=== PATIENT | male | born 1960 | race Caucasian/White ===

== ENCOUNTER 2020-07-02 13:38 | Outpatient (CLI) | payer SELFPAY | END 2020-07-02 13:39 | disposition EMS.NT | LOC: EMS 13:38 | DX: R25.1 Tremor, unspecified (principal) ==

== ENCOUNTER 2020-07-02 21:35 | Outpatient (CLI) | payer BC | END 2020-07-02 21:36 | disposition critical access hospital (66) | LOC: EMS 21:35 | PROVIDERS: ATTEND Emergency Medicine | DX: R25.1 Tremor, unspecified (principal); R11.0 Nausea | CPT/HCPCS: A0425; A0427 ==

== ENCOUNTER 2020-07-02 21:59 | Emergency (ER) | payer BC ==
--- NOTE | 2020-07-02 22:07 | ED Physician Documentation ---
PD HPI NVD - Stated complaint Stated Complaint: SHAKINESS - History obtained from History obtained from: Patient, EMS - History of Present Illness Timing - onset: Today (early this morning, and has continued through the day. Had been tapering/stopping alcohol use and had not had any today, only 2 drinks yesterday. Denies vomiting.) Timing - duration: Days (1-2) Timing - details: Gradual onset, Still present Associated symptoms: Loss of appetite. No: Fever, Abdominal pain, Chest pain, Near syncope / syncope Contributing factors: Alcohol use (drinks regularly and was wanting to stop, so had less alcohol the past few days and then none today.). No: Sick contact, Recent antibiotics Similar symptoms before: Has not had sx before Recently seen: Not recently seen Review of Systems Constitutional: denies: Fever, Chills Nose: denies: Rhinorrhea / runny nose, Congestion Throat: denies: Sore throat Cardiac: denies: Chest pain / pressure Respiratory: denies: Cough GI: reports: Nausea, Diarrhea (mild loose stools). denies: Abdominal Pain, Vomiting, Constipation, Bloody / black stool Neurologic: reports: Generalized weakness. denies: Focal weakness, Numbness, Near syncope, Confused, Altered mental status, Headache Psychiatric: denies: Depressed, Suicidal, Anxiety PD PAST MEDICAL HISTORY - Past Medical History Cardiovascular: None Respiratory: None Neuro: None Endocrine/Autoimmune: None - Present Medications Home Medications: Ambulatory Orders Medication Instructions Recorded Confirmed Famotidine [Pepcid] 20 mg PO DAILY #20 tab 07/03/20 LORazepam [Ativan] 1 mg PO Q8H PRN #25 tab 07/03/20 Ondansetron Odt [Zofran] 4 mg TL Q6H PRN #10 tab 07/03/20 - Allergies Allergies/Adverse Reactions: Allergies Allergy/AdvReac Type Severity Reaction Status Date / Time No Known Drug Allergies Allergy Verified 07/02/20 22:06 - Living Situation Living Situation: reports: With spouse/s.o. Living Arrangement: reports: At home - Social History Does the pt drink ETOH?: Yes Does the pt have substance abuse?: No PD ED PE NORMAL - Vitals Vital signs reviewed: Yes - General General: Alert and oriented X 3, No acute distress (seems shaky mildly. ), Well developed/nourished - HEENT HEENT: Pharynx benign - Neck Neck: Supple, no meningeal sign, No adenopathy - Cardiac Cardiac: RRR (regular but tachycardic), No murmur - Respiratory Respiratory: Clear bilaterally - Abdomen Abdomen: Normal bowel sounds, Soft, Non tender, Non distended, No organomegaly - Derm Derm: Normal color, Warm and dry - Extremities Extremities: Normal ROM s pain, No edema, Other (mild general tremoring arms and legs. ) - Neuro Neuro: Alert and oriented X 3, No motor deficit, Normal speech Results - Vitals Vitals: Vital Signs - 24 hr 07/02/20 07/02/20 07/03/20 22:06 22:11 00:12 Temperature 37.6 C 37.6 C Heart Rate 125 H 125 H 99 Respiratory 18 18 14 Rate Blood Pressure 160/100 H 160/100 H 149/56 H O2 Saturation 95 95 100 Oxygen O2 Source Room air - Labs Labs: Laboratory Tests 07/02/20 07/02/20 07/02/20 22:30 22:50 22:50 WBC 6.9 RBC 3.71 L Hgb 12.9 L Hct 36.3 L MCV 97.8 H MCH 34.8 H MCHC 35.5 RDW 13.4 Plt Count 163 MPV 9.1 Neut # (Auto) 5.7 Lymph # (Auto) 0.5 L [place] # (Auto) 0.6 Eos # (Auto) 0.0 Baso # (Auto) 0.0 Absolute Nucleated RBC 0.00 Nucleated RBC % 0.0 Sodium 134 L Potassium 3.7 Chloride 94 L Carbon Dioxide 25 Anion Gap 15.0 H BUN 5 L Creatinine 0.8 Estimated GFR (MDRD) 98 Glucose 117 H Calcium 9.9 Magnesium 1.9 Total Bilirubin 0.6 AST 48 H ALT 29 Alkaline Phosphatase 41 L Total Protein 7.7 Albumin 4.1 Globulin 3.6 Albumin/Globulin Ratio 1.1 Lipase 28 TSH Urine Opiates Screen NEGATIVE Ur Oxycodone Screen NEGATIVE Urine Methadone Screen NEGATIVE Ur Propoxyphene Screen NEGATIVE Ur Barbiturates Screen NEGATIVE Ur Tricyclics Screen NEGATIVE Ur Phencyclidine Scrn NEGATIVE Ur Amphetamine Screen NEGATIVE U Methamphetamines Scrn NEGATIVE U Benzodiazepines Scrn NEGATIVE Urine Cocaine Screen NEGATIVE U Cannabinoids Screen NEGATIVE Ethyl Alcohol < 5.0 07/02/20 22:50 WBC RBC Hgb Hct MCV MCH MCHC RDW Plt Count MPV Neut # (Auto) Lymph # (Auto) [place] # (Auto) Eos # (Auto) Baso # (Auto) Absolute Nucleated RBC Nucleated RBC % Sodium Potassium Chloride Carbon Dioxide Anion Gap BUN Creatinine Estimated GFR (MDRD) Glucose Calcium Magnesium Total Bilirubin AST ALT Alkaline Phosphatase Total Protein Albumin Globulin Albumin/Globulin Ratio Lipase TSH 2.18 Urine Opiates Screen Ur Oxycodone Screen Urine Methadone Screen Ur Propoxyphene Screen Ur Barbiturates Screen Ur Tricyclics Screen Ur Phencyclidine Scrn Ur Amphetamine Screen U Methamphetamines Scrn U Benzodiazepines Scrn Urine Cocaine Screen U Cannabinoids Screen Ethyl Alcohol PD MEDICAL DECISION MAKING - ED course Complexity details: re-evaluated patient (improved with just small dose ativan. Sleepy, but easily rousable. Can treat outpatient. Vitals improved. ), considered differential (improved with small dose of ativan. Shoulde be able to treat outpatient. ), d/w patient Departure - Departure Disposition: 01 Home, Self Care Clinical Impression: Shakiness Alcohol withdrawal Qualifiers: Complication of substance-induced condition: uncomplicated Qualified Code(s): F10.230 - Alcohol dependence with withdrawal, uncomplicated Condition: Stable Record reviewed to determine appropriate education?: Yes Instructions: ED Withdrawal Alcohol Prescriptions: LORazepam [Ativan] 1 mg PO Q8H PRN #25 tab PRN Reason: Alcohol Withdrawal Famotidine [Pepcid] 20 mg PO DAILY #20 tab Ondansetron Odt [Zofran] 4 mg TL Q6H PRN #10 tab PRN Reason: Nausea / Vomiting Comments: I think your tremors are related to some mild alcohol withdrawal. Good for you for trying to cut down and stop alcohol if it has been regular. Continue to avoid it. Use lorazepam every 6-8 hours if needed for tremoring and nausea. Try to taper down the frequency of it over the next several days. Tapering down the frequency and dose will help you more smoothly be without the alcohol and not have tremor and other symptoms. Consider also famotidine acid reducing medicine daily for a week or two. Ondansetron if needed for nausea. Stay well-hydrated otherwise. Discharge Date/Time: 07/03/20 00:53
[2020-07-02] MEDS ORDERED: LORazepam 2 MG/ML VIAL IVP STA (22:13)
[2020-07-02] MEDS ORDERED: DROPERIDOL 5 MG/2 ML VIAL IVP STA (22:13)
[2020-07-02] MEDS ORDERED: SODIUM CHLORIDE 0.9% 1,000 ML IV STA (22:13)
[2020-07-02 22:41] LABS: MUDS CUTOFF CONCENTRATIONS CUTOFF CONC BELOW:
[2020-07-02 22:58] LABS: BASOPHILS % (AUTO) 0.3 %; EOSINOPHILS % (AUTO) 0.1 %; HGB - HEMOGLOBIN 12.9 g/dL (14.0-18.0); LYMPHOCYTES # (AUTO) 0.5 10^3/uL (1.5-3.5); LYMPHOCYTES % (AUTO) 7.7 %; MEAN CORPUSCULAR HEMOGLOBIN 34.8 pg (27.0-31.0); MEAN CORPUSCULAR HGB CONC 35.5 g/dL (32.0-36.0); MEAN CORPUSCULAR VOLUME 97.8 fL (80.0-94.0); MEAN PLATELET VOLUME 9.1 fL (7.4-11.4); MONOCYTES # (AUTO) 0.6 10^3/uL (0.0-1.0); MONOCYTES % (AUTO) 8.6 %; NEUTROPHILS # (AUTO) 5.7 10^3/uL (1.5-6.6); PLT - PLATELET COUNT 163 10^3/uL (130-450); RED BLOOD COUNT 3.71 10^6/uL (4.70-6.10); RED CELL DISTRIBUTION WIDTH 13.4 % (12.0-15.0); WHITE BLOOD COUNT 6.9 x10^3/uL (4.8-10.8)
[2020-07-02 22:59] LABS: AMPHETAMINE SCREEN,URINE NEGATIVE (NEGATIVE); BENZODIAZEPINES SCREEN, URINE NEGATIVE (NEGATIVE); COCAINE SCREEN URINE NEGATIVE (NEGATIVE); METHADONE SCREEN, URINE NEGATIVE (NEGATIVE); METHAMPHETAMINES SCREEN, URINE NEGATIVE (NEGATIVE); OPIATE SCREEN, URINE NEGATIVE (NEGATIVE); OXYCODONE SCREEN, URINE NEGATIVE (NEGATIVE); PROPOXYPHENE SCREEN, URINE NEGATIVE (NEGATIVE); TRICYCLIC ANTIDEPRESSANT,URINE NEGATIVE (NEGATIVE)
[2020-07-02 23:13] LABS: ALBUMIN 4.1 g/dL (3.2-5.5); ALBUMIN/GLOBULIN RATIO 1.1 (1.0-2.2); ALKALINE PHOSPHATASE 41 IU/L (42-121); ALT ALANINE AMINOTRANSFERASE 29 IU/L (10-60); AST ASPARTATE AMINOTRANSFERASE 48 IU/L (10-42); BILIRUBIN,TOTAL 0.6 mg/dL (0.2-1.0); BUN - BLOOD UREA NITROGEN 5 mg/dL (6-20); CALCIUM 9.9 mg/dL (8.5-10.3); CARBON DIOXIDE - CO2 25 mmol/L (21-32); CHLORIDE 94 mmol/L (101-111); CREATININE 0.8 mg/dL (0.6-1.2); GLUCOSE 117 mg/dL (70-100); LIPASE 28 U/L (22-51); MAGNESIUM 1.9 mg/dL (1.7-2.8); TOTAL PROTEIN 7.7 g/dL (6.7-8.2)
[2020-07-03 00:13] VITALS: BP 149/56
== END 2020-07-03 00:53 | disposition home or self-care (01) ==
LOC: EDUNIT# → ED 21:59
DX: F10.230 Alcohol dependence with withdrawal, uncomplicated (principal)
CPT/HCPCS: 36415; 80053; 80306; 80320; 83690; 83735; 84443; 85025; 96374; 96375; 99283; 99284; J2060

== ENCOUNTER 2020-11-13 13:32 | Outpatient (CLI) | payer BC | END 2020-11-13 13:33 | disposition critical access hospital (66) | LOC: EMS 13:32 | DX: F41.9 Anxiety disorder, unspecified (principal) | CPT/HCPCS: A0425; A0429 ==

== ENCOUNTER 2020-11-13 13:57 | Emergency (ER) | payer BC ==
[2020-11-13] MEDS ORDERED: DEXAMETHASONE 10 MG/ML VIAL IVP STA (14:57)
[2020-11-13] MEDS ORDERED: LORazepam 2 MG/ML VIAL IVP STA (14:57)
[2020-11-13] MEDS ORDERED: FOLIC ACID INJ 1 MG, THIAMINE INJ 100 MG, MAGNESIUM SULFATE 2 GM, MULTIVITAMIN 10 ML in... IV STA ×5 (14:57)
--- NOTE | 2020-11-13 15:00 | ED Physician Documentation ---
History of Present Illness - Stated complaint Stated Complaint: PANIC ATTACK - Chief complaint Chief Complaint: Abd Pain - History obtained from History obtained from: Patient - History of Present Illness Timing: Yesterday - Additonal information Additional information: 60-year-old alcoholic male has stopped drinking and has developed some nausea abdominal pain and shakiness. He does not feel well. He has had this previously and he aborted his attempt at detoxification partway through. He is interested in detoxification today and would like information but he is not interested in inpatient detox. Review of Systems Constitutional: denies: Fever, Chills Eyes: denies: Decreased vision Ears: denies: Ear pain Nose: denies: Congestion Throat: denies: Sore throat Cardiac: denies: Chest pain / pressure, Palpitations Respiratory: denies: Dyspnea, Cough GI: reports: Abdominal Pain, Nausea, Vomiting : denies: Dysuria, Frequency Skin: denies: Rash Musculoskeletal: denies: Neck pain, Back pain, Extremity pain Neurologic: reports: Headache, Other (shakiness). denies: Generalized weakness, Focal weakness, Numbness PD PAST MEDICAL HISTORY - Past Medical History Cardiovascular: None Respiratory: None Neuro: None Endocrine/Autoimmune: None Psych: Other Other Past Medical History: alcoholism - Present Medications Home Medications: Ambulatory Orders Medication Instructions Recorded Confirmed amLODIPine [Norvasc] 1 tab PO DAILY 11/13/20 11/13/20 chlordiazePOXIDE [Librium] 25 mg PO Q6H PRN #12 cap 11/13/20 - Allergies Allergies/Adverse Reactions: Allergies Allergy/AdvReac Type Severity Reaction Status Date / Time No Known Drug Allergies Allergy Verified 11/13/20 14:09 - Social History Does the pt smoke?: No Smoking Status: Never smoker Does the pt drink ETOH?: Yes ETOH Use: Wine, Beer Does the pt have substance abuse?: No PD ED PE NORMAL - Vitals Vital signs reviewed: Yes (tachy and hypertensive ) - General General: Alert and oriented X 3, No acute distress, Well developed/nourished, Other (appears "shaky") - HEENT HEENT: Atraumatic, PERRL, EOMI - Neck Neck: Supple, no meningeal sign, No bony TTP - Cardiac Cardiac: RRR, No murmur - Respiratory Respiratory: No respiratory distress, Clear bilaterally - Abdomen Abdomen: Normal bowel sounds, Soft, Non tender, Non distended - Back Back: No CVA TTP, No spinal TTP - Derm Derm: Normal color, Warm and dry, No rash - Extremities Extremities: No deformity, No edema - Neuro Neuro: Alert and oriented X 3, 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, No motor deficit, No sensory deficit, Normal speech, Other (3hz shakes ) Eye Opening: Spontaneous Motor: Obeys Commands Verbal: Oriented GCS Score: 15 - Psych Psych: Normal mood, Normal affect Results - Vitals Vitals: Vital Signs - 24 hr 11/13/20 11/13/20 13:58 16:42 Temperature 37.1 C Heart Rate 111 H 102 H Respiratory 16 16 Rate Blood Pressure 153/90 H 152/91 H O2 Saturation 96 96 Oxygen O2 Source Room air - Labs Labs: Laboratory Tests 11/13/20 11/13/20 11/13/20 15:04 15:04 15:04 WBC 7.5 RBC 4.29 L Hgb 14.8 Hct 41.9 L MCV 97.7 H MCH 34.5 H MCHC 35.3 RDW 13.5 Plt Count 181 MPV 9.0 Neut # (Auto) 6.0 Lymph # (Auto) 0.7 L [place] # (Auto) 0.8 Eos # (Auto) 0.0 Baso # (Auto) 0.1 Absolute Nucleated RBC 0.00 Nucleated RBC % 0.0 PT 12.0 INR 1.1 Sodium 133 L Potassium 4.1 Chloride 92 L Carbon Dioxide 25 Anion Gap 16.0 H BUN 7 Creatinine 0.8 Estimated GFR (MDRD) 98 Glucose 113 H Calcium 10.4 H Magnesium 2.2 Total Bilirubin 0.9 AST 126 H ALT 82 H Alkaline Phosphatase 62 Total Protein 8.4 H Albumin 4.6 Globulin 3.8 Albumin/Globulin Ratio 1.2 Lipase 26 Ethyl Alcohol < 5.0 PD MEDICAL DECISION MAKING - ED course Complexity details: reviewed results, re-evaluated patient, considered differential, d/w patient ED course: 60-year-old alcoholic male who wants stop drinking comes into the emergency department in alcohol withdrawal with shakes. He is administered intravenously Ativan 2 mg, with marked improvement in the shakes. He is given a banana bag as well as 10 mg of dexamethasone. He feels much improved at the time of discharge, wants to get off of the alcohol, and he is provided with a prescription for Librium and instructions on its use. He is given resources in the form of a call list for alcohol. Departure - Departure Disposition: 01 Home, Self Care Clinical Impression: Alcohol withdrawal Qualifiers: Complication of substance-induced condition: uncomplicated Qualified Code(s): F10.230 - Alcohol dependence with withdrawal, uncomplicated Condition: Stable Instructions: ED Withdrawal Alcohol Follow-Up: [facility] [place] [Provider Group] Prescriptions: chlordiazePOXIDE [Librium] 25 mg PO Q6H PRN #12 cap PRN Reason: withdrawal symptoms Comments: Use the Librium to substitute for alcohol. Today you may need a dose every 6 hours and tomorrow every 8 hours in the day following that every 12 hours and then every other day. Discharge Date/Time: 11/13/20 17:48
[2020-11-13 15:09] LABS: BASOPHILS # (AUTO) 0.1 10^3/uL (0.0-0.1); BASOPHILS % (AUTO) 0.7 %; EOSINOPHILS % (AUTO) 0.1 %; HCT - HEMATOCRIT 41.9 % (42.0-52.0); HGB - HEMOGLOBIN 14.8 g/dL (14.0-18.0); LYMPHOCYTES # (AUTO) 0.7 10^3/uL (1.5-3.5); LYMPHOCYTES % (AUTO) 8.7 %; MEAN CORPUSCULAR HEMOGLOBIN 34.5 pg (27.0-31.0); MEAN CORPUSCULAR HGB CONC 35.3 g/dL (32.0-36.0); MEAN CORPUSCULAR VOLUME 97.7 fL (80.0-94.0); MONOCYTES # (AUTO) 0.8 10^3/uL (0.0-1.0); MONOCYTES % (AUTO) 10.3 %; NEUTROPHILS % (AUTO) 79.8 %; PLT - PLATELET COUNT 181 10^3/uL (130-450); RED BLOOD COUNT 4.29 10^6/uL (4.70-6.10); RED CELL DISTRIBUTION WIDTH 13.5 % (12.0-15.0); WHITE BLOOD COUNT 7.5 x10^3/uL (4.8-10.8)
[2020-11-13 15:16] LABS: INR 1.1 (0.8-1.2)
[2020-11-13 15:23] LABS: ALBUMIN 4.6 g/dL (3.2-5.5); ALBUMIN/GLOBULIN RATIO 1.2 (1.0-2.2); ALKALINE PHOSPHATASE 62 IU/L (42-121); ALT ALANINE AMINOTRANSFERASE 82 IU/L (10-60); AST ASPARTATE AMINOTRANSFERASE 126 IU/L (10-42); BILIRUBIN,TOTAL 0.9 mg/dL (0.2-1.0); BUN - BLOOD UREA NITROGEN 7 mg/dL (6-20); CALCIUM 10.4 mg/dL (8.5-10.3); CARBON DIOXIDE - CO2 25 mmol/L (21-32); CHLORIDE 92 mmol/L (101-111); CREATININE 0.8 mg/dL (0.6-1.2); ETOH - ETHANOL < 5.0 mg/dL; GFR - MDRD 98 (>89); GLUCOSE 113 mg/dL (70-100); LIPASE 26 U/L (22-51); MAGNESIUM 2.2 mg/dL (1.7-2.8); POTASSIUM 4.1 mmol/L (3.5-5.0); SODIUM 133 mmol/L (135-145); TOTAL PROTEIN 8.4 g/dL (6.7-8.2)
[2020-11-13 16:43] VITALS: BP 152/91
== END 2020-11-13 17:48 | disposition home or self-care (01) ==
LOC: EDUNIT# → ED 13:57
DX: F10.230 Alcohol dependence with withdrawal, uncomplicated (principal)
CPT/HCPCS: 36415; 80053; 80320; 83690; 83735; 85025; 85610; 96365; 96375; 99284; J2060; J3411

== ENCOUNTER 2021-10-03 07:52 | Outpatient (CLI) | payer BC | END 2021-10-03 07:53 | disposition critical access hospital (66) | LOC: EMS 07:52 | DX: R25.1 Tremor, unspecified (principal); R63.0 Anorexia; R11.0 Nausea; R00.0 Tachycardia, unspecified; Z72.89 Other problems related to lifestyle | CPT/HCPCS: A0425; A0427 ==

== ENCOUNTER 2021-10-03 08:16 | Emergency (ER) | payer BC ==
[2021-10-03] MEDS ORDERED: THIAMINE INJ 100 MG, MAGNESIUM SULFATE 2 GM, MULTIVITAMIN 10 ML, FOLIC ACID INJ 1 MG in... IV ONE ×5 (09:01)
[2021-10-03] MEDS ORDERED: LORazepam 2 MG/ML VIAL IVP STA (09:01)
[2021-10-03] MEDS ORDERED: DEXAMETHASONE 10 MG/ML VIAL IVP STA (09:02)
--- NOTE | 2021-10-03 09:04 | ED Physician Documentation ---
History of Present Illness - Stated complaint Stated Complaint: ETOH - Chief complaint Chief Complaint: General - History obtained from History obtained from: Patient - History of Present Illness Timing: Today - Additonal information Additional information: 61-year-old alcoholic male reports that he overdid it last night with beer and wine and wants to get off alcohol today he presents to the emergency department with the shakes and states that he has had some diarrhea yesterday has some nausea today has not had vomiting. He has had prior experience with Librium felt that that was helpful was off alcohol for about a month or 2. Review of Systems Constitutional: denies: Fever, Chills Eyes: denies: Decreased vision Ears: denies: Ear pain Nose: denies: Rhinorrhea / runny nose, Congestion Throat: denies: Sore throat Cardiac: denies: Chest pain / pressure, Palpitations Respiratory: denies: Dyspnea, Cough GI: reports: Abdominal Pain, Nausea, Diarrhea. denies: Vomiting : denies: Dysuria, Frequency Skin: denies: Rash Musculoskeletal: denies: Neck pain, Back pain, Extremity pain Neurologic: denies: Generalized weakness, Focal weakness, Numbness PD PAST MEDICAL HISTORY - Past Medical History Cardiovascular: None Respiratory: None Neuro: None Endocrine/Autoimmune: None Psych: Other - Present Medications Home Medications: Ambulatory Orders Medication Instructions Recorded Confirmed amLODIPine [Norvasc] 5 mg PO DAILY 11/13/20 10/03/21 chlordiazePOXIDE [Librium] 25 mg PO Q6H #15 cap 10/03/21 - Allergies Allergies/Adverse Reactions: Allergies Allergy/AdvReac Type Severity Reaction Status Date / Time No Known Drug Allergies Allergy Verified 10/03/21 08:24 - Social History Does the pt smoke?: No Smoking Status: Never smoker Does the pt drink ETOH?: Yes Does the pt have substance abuse?: No PD ED PE NORMAL - Vitals Vital signs reviewed: Yes - General General: Alert and oriented X 3, Well developed/nourished, Other (shakes are present with any intention ) - HEENT HEENT: Atraumatic, PERRL, EOMI, Other (dry mucous membranes) - Neck Neck: Supple, no meningeal sign, No bony TTP - Cardiac Cardiac: No murmur, Other (tachy to 100) - Respiratory Respiratory: No respiratory distress, Clear bilaterally - Abdomen Abdomen: Normal bowel sounds, Soft, Non tender, Non distended, No organomegaly - Back Back: No CVA TTP, No spinal TTP - Derm Derm: Normal color, Warm and dry, No rash - Extremities Extremities: No deformity, No edema - Neuro Neuro: Alert and oriented X 3, 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, No motor deficit, No sensory deficit, Normal speech Eye Opening: Spontaneous Motor: Obeys Commands Verbal: Oriented GCS Score: 15 - Psych Psych: Normal mood, Normal affect Results - Vitals Vitals: Vital Signs - 24 hr 10/03/21 10/03/21 10/03/21 08:20 09:29 10:35 Temperature 37.1 C 37 C Heart Rate 103 H 101 H 98 Respiratory 16 19 18 Rate Blood Pressure 168/68 H 137/90 H 143/84 H O2 Saturation 95 95 91 L Oxygen O2 Source Room air - Labs Labs: Laboratory Tests 10/03/21 10/03/21 10/03/21 09:15 09:15 09:20 WBC 7.2 RBC 4.16 L Hgb 14.2 Hct 41.2 L MCV 99.0 H MCH 34.1 H MCHC 34.5 RDW 13.3 Plt Count 198 MPV 9.4 Neut # (Auto) 5.8 Lymph # (Auto) 0.7 L Lucas # (Auto) 0.5 Eos # (Auto) 0.0 Baso # (Auto) 0.1 Absolute Nucleated RBC 0.00 Nucleated RBC % 0.0 Sodium Potassium Chloride Carbon Dioxide Anion Gap BUN Creatinine Estimated GFR (MDRD) Glucose Lactic Acid Calcium Total Bilirubin AST ALT Alkaline Phosphatase Total Protein Albumin Globulin Albumin/Globulin Ratio Lipase Urine Color LIGHT YELLOW Urine Clarity CLEAR Urine pH 6.0 Ur Specific [place] <=1.005 Urine Protein NEGATIVE Urine Glucose (UA) NEGATIVE Urine Ketones NEGATIVE Urine Occult Blood NEGATIVE Urine Nitrite NEGATIVE Urine Bilirubin NEGATIVE Urine Urobilinogen 0.2 (NORMAL) Ur Leukocyte Esterase NEGATIVE Ur Microscopic Review NOT INDICATED Urine Culture Comments NOT INDICATED Urine Opiates Screen NEGATIVE Ur Oxycodone Screen NEGATIVE Urine Methadone Screen NEGATIVE Ur Propoxyphene Screen NEGATIVE Ur Barbiturates Screen NEGATIVE Ur Tricyclics Screen NEGATIVE Ur Phencyclidine Scrn NEGATIVE Ur Amphetamine Screen NEGATIVE U Methamphetamines Scrn NEGATIVE U Benzodiazepines Scrn NEGATIVE Urine Cocaine Screen NEGATIVE U Cannabinoids Screen NEGATIVE Ethyl Alcohol 10/03/21 10/03/21 10/03/21 09:20 09:20 11:23 WBC RBC Hgb Hct MCV MCH MCHC RDW Plt Count MPV Neut # (Auto) Lymph # (Auto) Lucas # (Auto) Eos # (Auto) Baso # (Auto) Absolute Nucleated RBC Nucleated RBC % Sodium 139 Potassium 3.8 Chloride 102 Carbon Dioxide 21 Anion Gap 16.0 H BUN 5 L Creatinine 0.7 Estimated GFR (MDRD) 114 Glucose 96 Lactic Acid 2.5 H 0.7 Calcium 9.1 Total Bilirubin 0.5 AST 88 H ALT 50 Alkaline Phosphatase 70 Total Protein 7.8 Albumin 3.8 Globulin 4.0 Albumin/Globulin Ratio 1.0 Lipase 28 Urine Color Urine Clarity Urine pH Ur Specific [place] Urine Protein Urine Glucose (UA) Urine Ketones Urine Occult Blood Urine Nitrite Urine Bilirubin Urine Urobilinogen Ur Leukocyte Esterase Ur Microscopic Review Urine Culture Comments Urine Opiates Screen Ur Oxycodone Screen Urine Methadone Screen Ur Propoxyphene Screen Ur Barbiturates Screen Ur Tricyclics Screen Ur Phencyclidine Scrn Ur Amphetamine Screen U Methamphetamines Scrn U Benzodiazepines Scrn Urine Cocaine Screen U Cannabinoids Screen Ethyl Alcohol 29.9 PD MEDICAL DECISION MAKING - ED course Complexity details: reviewed results, re-evaluated patient, considered differential, d/w patient ED course: 61-year-old Chad Dahl comes to the Emergency Department today after de ciding he wants to discontinue alcohol. He comes over with a bit of the shakes is administered a milligram of Ativan as well as a banana bag and 10 mg dexamethasone. He is much improved at the time of discharge. He is prescribed a Librium taper. Departure - Departure Disposition: 01 Home, Self Care Clinical Impression: Alcohol withdrawal Qualifiers: Complication of substance-induced condition: uncomplicated Qualified Code(s): F10.230 - Alcohol dependence with withdrawal, uncomplicated Condition: Stable Instructions: ED Withdrawal Alcohol Follow-Up: Brent Suarez MD [Primary Care Provider] - Prescriptions: chlordiazePOXIDE [Librium] 25 mg PO Q6H #15 cap Comments: Chad, today it looks like you are again wanting to detox from alcohol and this seems to be a smith thing to do. My recommendation is to take Librium as previously with abstinence from alcohol. Follow resources as provided. Your medication has been e-scribed to [facility] in [place]. Discharge Date/Time: 10/03/21 12:06
[2021-10-03 09:28] LABS: BASOPHILS # (AUTO) 0.1 10^3/uL (0.0-0.1); BASOPHILS % (AUTO) 0.7 %; EOSINOPHILS % (AUTO) 0.3 %; HCT - HEMATOCRIT 41.2 % (42.0-52.0); HGB - HEMOGLOBIN 14.2 g/dL (14.0-18.0); LYMPHOCYTES # (AUTO) 0.7 10^3/uL (1.5-3.5); LYMPHOCYTES % (AUTO) 9.8 %; MEAN CORPUSCULAR HEMOGLOBIN 34.1 pg (27.0-31.0); MEAN CORPUSCULAR HGB CONC 34.5 g/dL (32.0-36.0); MEAN PLATELET VOLUME 9.4 fL (7.4-11.4); MONOCYTES # (AUTO) 0.5 10^3/uL (0.0-1.0); MONOCYTES % (AUTO) 7.4 %; NEUTROPHILS # (AUTO) 5.8 10^3/uL (1.5-6.6); NEUTROPHILS % (AUTO) 81.4 %; PLT - PLATELET COUNT 198 10^3/uL (130-450); RED BLOOD COUNT 4.16 10^6/uL (4.70-6.10); RED CELL DISTRIBUTION WIDTH 13.3 % (12.0-15.0); WHITE BLOOD COUNT 7.2 x10^3/uL (4.8-10.8)
[2021-10-03 09:31] LABS: MUDS CUTOFF CONCENTRATIONS CUTOFF CONC BELOW:
[2021-10-03 09:32] LABS: BILIRUBIN,URINE NEGATIVE (NEGATIVE); GLUCOSE, URINE (UA) NEGATIVE (NEGATIVE); KETONES,URINE (UA) NEGATIVE (NEGATIVE); LEUKOCYTE ESTERASE, URINE NEGATIVE (NEGATIVE); NITRITE,URINE NEGATIVE (NEGATIVE); OCCULT BLOOD,URINE NEGATIVE (NEGATIVE); PROTEIN,URINE NEGATIVE (NEGATIVE); UROBILINOGEN,URINE 0.2 (NORMAL) E.U./dL (NORMAL)
[2021-10-03 09:34] LABS: CLARITY,URINE CLEAR (CLEAR)
[2021-10-03 09:41] LABS: ALBUMIN 3.8 g/dL (3.2-5.5); BILIRUBIN,TOTAL 0.5 mg/dL (0.2-1.0); CALCIUM 9.1 mg/dL (8.5-10.3); CREATININE 0.7 mg/dL (0.6-1.2); ETOH - ETHANOL 29.9 mg/dL; POTASSIUM 3.8 mmol/L (3.5-5.0); TOTAL PROTEIN 7.8 g/dL (6.7-8.2)
[2021-10-03 09:46] LABS: AMPHETAMINE SCREEN,URINE NEGATIVE (NEGATIVE); BARBITURATE SCREEN,UR NEGATIVE (NEGATIVE); BENZODIAZEPINES SCREEN, URINE NEGATIVE (NEGATIVE); COCAINE SCREEN URINE NEGATIVE (NEGATIVE); METHADONE SCREEN, URINE NEGATIVE (NEGATIVE); METHAMPHETAMINES SCREEN, URINE NEGATIVE (NEGATIVE); OPIATE SCREEN, URINE NEGATIVE (NEGATIVE); OXYCODONE SCREEN, URINE NEGATIVE (NEGATIVE); PROPOXYPHENE SCREEN, URINE NEGATIVE (NEGATIVE); THC CANNABINOID SCREEN, URINE NEGATIVE (NEGATIVE); TRICYCLIC ANTIDEPRESSANT,URINE NEGATIVE (NEGATIVE)
[2021-10-03 10:36] VITALS: BP 143/84
== END 2021-10-03 12:06 | disposition home or self-care (01) ==
LOC: EDUNIT# → ED 08:16
DX: F10.230 Alcohol dependence with withdrawal, uncomplicated (principal)
CPT/HCPCS: 36415; 80053; 80306; 80320; 81003; 83605; 83690; 85025; 96365; 96366; 96375; 99283; 99284; J2060; J3411; 81001; 87086

== ENCOUNTER 2022-03-08 22:39 | Outpatient (CLI) | payer BC | END 2022-03-08 22:40 | disposition critical access hospital (66) | LOC: EMS 22:39 | DX: F41.9 Anxiety disorder, unspecified (principal); R07.89 Other chest pain; R11.0 Nausea; R23.2 Flushing; R00.0 Tachycardia, unspecified; R25.9 Unspecified abnormal involuntary movements | CPT/HCPCS: A0425; A0429 ==

== ENCOUNTER 2022-03-08 23:00 | Emergency (ER) | payer BC ==
[2022-03-08] MEDS ORDERED: LORazepam 2 MG/ML VIAL IVP STA ×2 (23:40→23:49)
[2022-03-08] MEDS ORDERED: SODIUM CHLORIDE 0.9% 1,000 ML IV STA (23:40)
--- NOTE | 2022-03-08 23:40 | ED Physician Documentation ---
History of Present Illness - Stated complaint Stated Complaint: ETOH/ANXIETY - Chief complaint Chief Complaint: MHE - History obtained from History obtained from: Patient, EMS - History of Present Illness Timing: How many days ago (2) Pain level max: 0 Pain level now: 0 - Additonal information Additional information: BIBA. Patient says he is an alcoholic with heavy daily alcohol consumption (beer, wine, occasionally has a shot of whiskey). He last drank alcohol at approximately 9 PM tonight. For the past 2 days, he has been increasingly nauseas although no vomiting; he has had no appetite for two days. He is feeling symptoms consistent with previous episodes of alcohol withdrawal: he is having 1-2 days of tremulousness, anxiety, palpitations. He denies AH/VH. Review of Systems Constitutional: reports: Sweats Eyes: reports: Other Cardiac: reports: Reviewed and negative Respiratory: reports: Reviewed and negative GI: reports: Nausea. denies: Abdominal Pain, Vomiting, Constipation, Diarrhea, Hematemesis, Bloody / black stool PD PAST MEDICAL HISTORY - Past Medical History Past Medical History: Yes Cardiovascular: Hypertension Respiratory: None Neuro: None Endocrine/Autoimmune: None GI: None : None HEENT: None Psych: Other Musculoskeletal: Other Derm: None Other Past Medical History: LEG SPASMS.. - Present Medications Home Medications: Ambulatory Orders Medication Instructions Recorded Confirmed amLODIPine [Norvasc] 5 mg PO DAILY 11/13/20 03/08/22 tiZANidine [Zanaflex] 2 mg PO Q8H 03/08/22 03/08/22 Ondansetron Odt [Zofran] 4 mg TL Q6H PRN #10 tablet 03/09/22 chlordiazePOXIDE [Librium] 25 mg PO Q6H #15 cap 03/09/22 - Allergies Allergies/Adverse Reactions: Allergies Allergy/AdvReac Type Severity Reaction Status Date / Time No Known Drug Allergies Allergy Verified 03/08/22 23:10 - Social History Does the pt smoke?: No Smoking Status: Never smoker Does the pt drink ETOH?: Yes Does the pt have substance abuse?: No - Immunizations Immunizations are current?: No - POLST Patient has POLST: No PD ED PE NORMAL - Vitals Vital signs reviewed: Yes - General General: Alert and oriented X 3, Well developed/nourished, Other (appears anxious and mildly/moderately tremulous) - HEENT HEENT: PERRL, EOMI, Other (tacky mucous membranes) - Cardiac Cardiac: No murmur - Respiratory Respiratory: No respiratory distress, Clear bilaterally - Abdomen Abdomen: Soft, Non tender - Derm Derm: Normal color, Warm and dry - Neuro Neuro: Alert and oriented X 3, Normal speech Eye Opening: Spontaneous Motor: Obeys Commands Verbal: Oriented GCS Score: 15 PD ED PE EXPANDED - Cardiac Cardiac: Tachy, Regular Rhythm Results - Vitals Vitals: Oxygen O2 Source Room air - Labs Labs: Laboratory Tests 03/08/22 03/08/22 23:35 23:35 WBC 7.8 RBC 4.57 L Hgb 14.9 Hct 43.1 MCV 94.3 H MCH 32.6 H MCHC 34.6 RDW 13.1 Plt Count 159 MPV 9.5 Neut # (Auto) 6.2 Lymph # (Auto) 0.7 L [place] # (Auto) 0.8 Eos # (Auto) 0.0 Baso # (Auto) 0.0 Absolute Nucleated RBC 0.00 Nucleated RBC % 0.0 Sodium 135 Potassium 3.9 Chloride 96 L Carbon Dioxide 26 Anion Gap 13.0 BUN 5 L Creatinine 0.8 Estimated GFR (MDRD) 98 Glucose 135 H Calcium 10.2 Total Bilirubin 0.7 AST 56 H ALT 39 Alkaline Phosphatase 88 Total Protein 8.0 Albumin 4.2 Globulin 3.8 Albumin/Globulin Ratio 1.1 Lipase 26 Ethyl Alcohol < 5.0 PD MEDICAL DECISION MAKING - ED course Complexity details: reviewed old records, reviewed results, re-evaluated patient, considered differential, d/w patient ED course: BIBA for alcohol withdrawal. He has been here a few times before (to [facility] ED) for this, although infrequently with most recent visit previous to [facility] being five months ago. He has had good results with librium for withdrawal in the past. He is given IV NS x 1 liter followed by 1 liter NS with MV/folate/thiamine ("banana bag"). He is given IV lorazepam 1 mg x 2 doses with good symptom relief (both visually (his tremulousness resolved) and by patient's report). He is given PO librium prior to d/c and rx for librium taper. Encouraged to return if worse. No concerning findings on rayo's blood tests (LFTs normal except mildly elevated AST). Departure - Departure Disposition: 01 Home, Self Care Clinical Impression: Alcohol withdrawal syndrome Qualifiers: Complication of substance-induced condition: uncomplicated Qualified Code(s): F10.930 - Alcohol use, unspecified with withdrawal, uncomplicated Condition: Good Instructions: ED Withdrawal Alcohol Follow-Up: Brent Suarez MD [Primary Care Provider] - Prescriptions: chlordiazePOXIDE [Librium] 25 mg PO Q6H #15 cap Ondansetron Odt [Zofran] 4 mg TL Q6H PRN #10 tablet PRN Reason: Nausea / Vomiting Comments: Prescriptions for ondansetron (anti-nausea medication) and chlordiazepoxide (librium, medication to help with symptoms of alcohol withdrawal) have been electronically submitted to the [facility] pharmacy in [place]. Take the chlordiazepoxide as follows: DAY 1: two tablets by mouth every six hours (total of eight tablets in first 24 hours) DAY 2: one tablet by mouth every six hours DAY 3: one tablet by mouth every twelve hours DAY 4: one tablet at bedtime Discharge Date/Time: 03/09/22 03:00
[2022-03-08 23:45] LABS: BASOPHILS % (AUTO) 0.4 %; EOSINOPHILS % (AUTO) 0.4 %; HCT - HEMATOCRIT 43.1 % (42.0-52.0); HGB - HEMOGLOBIN 14.9 g/dL (14.0-18.0); LYMPHOCYTES # (AUTO) 0.7 10^3/uL (1.5-3.5); LYMPHOCYTES % (AUTO) 9.2 %; MEAN CORPUSCULAR HEMOGLOBIN 32.6 pg (27.0-31.0); MEAN CORPUSCULAR HGB CONC 34.6 g/dL (32.0-36.0); MEAN CORPUSCULAR VOLUME 94.3 fL (80.0-94.0); MEAN PLATELET VOLUME 9.5 fL (7.4-11.4); MONOCYTES # (AUTO) 0.8 10^3/uL (0.0-1.0); MONOCYTES % (AUTO) 10.2 %; NEUTROPHILS # (AUTO) 6.2 10^3/uL (1.5-6.6); NEUTROPHILS % (AUTO) 79.5 %; PLT - PLATELET COUNT 159 10^3/uL (130-450); RED BLOOD COUNT 4.57 10^6/uL (4.70-6.10); RED CELL DISTRIBUTION WIDTH 13.1 % (12.0-15.0); WHITE BLOOD COUNT 7.8 x10^3/uL (4.8-10.8)
[2022-03-08] MEDS ORDERED: THIAMINE INJ 100 MG, MAGNESIUM SULFATE 2 GM, MULTIVITAMIN 10 ML, FOLIC ACID INJ 1 MG in... IV ONE ×5 (23:49)
[2022-03-08] MEDS ORDERED: MAGNESIUM SULFATE 1 GM/2 ML VIAL ONE (23:55)
[2022-03-08] MEDS ORDERED: THIAMINE 100 MG/1 ML 2 ML MDV ONE (23:55)
[2022-03-08] MEDS ORDERED: FOLIC ACID 5 MG/1 ML 10ML MDV ONE (23:55)
[2022-03-08] MEDS ORDERED: MULTIVITAMIN IV 10 ML VIAL ONE (23:55)
[2022-03-09 00:01] LABS: ALBUMIN 4.2 g/dL (3.2-5.5); ALBUMIN/GLOBULIN RATIO 1.1 (1.0-2.2); ALKALINE PHOSPHATASE 88 IU/L (42-121); ALT ALANINE AMINOTRANSFERASE 39 IU/L (10-60); AST ASPARTATE AMINOTRANSFERASE 56 IU/L (10-42); BILIRUBIN,TOTAL 0.7 mg/dL (0.2-1.0); BUN - BLOOD UREA NITROGEN 5 mg/dL (6-20); CALCIUM 10.2 mg/dL (8.5-10.3); CARBON DIOXIDE - CO2 26 mmol/L (21-32); CHLORIDE 96 mmol/L (101-111); CREATININE 0.8 mg/dL (0.6-1.2); ETOH - ETHANOL < 5.0 mg/dL; GFR - MDRD 98 (>89); GLUCOSE 135 mg/dL (70-100); LIPASE 26 U/L (22-51); POTASSIUM 3.9 mmol/L (3.5-5.0); SODIUM 135 mmol/L (135-145)
[2022-03-09 02:36] VITALS: BP 151/90
[2022-03-09] MEDS ORDERED: chlordiazePOXIDE 25 MG CAPSULE PO STA (02:54)
== END 2022-03-09 03:00 | disposition home or self-care (01) ==
LOC: EDUNIT# → ED 23:00
DX: F10.930 Alcohol use, unspecified with withdrawal, uncomplicated (principal); F41.9 Anxiety disorder, unspecified; I10 Essential (primary) hypertension
CPT/HCPCS: 36415; 80053; 80320; 83690; 85025; 93005; 96365; 96375; 99283; 99284; A9270; J2060; J3411

== ENCOUNTER 2022-06-18 15:20 | Outpatient (CLI) | payer BC | END 2022-06-18 15:21 | disposition critical access hospital (66) | LOC: EMS 15:20 | DX: F41.9 Anxiety disorder, unspecified (principal); R11.2 Nausea with vomiting, unspecified; Z72.89 Other problems related to lifestyle | CPT/HCPCS: A0425; A0427 ==

== ENCOUNTER 2022-06-18 15:43 | Emergency (ER) | payer BC ==
[2022-06-18] MEDS ORDERED: ONDANSETRON 4 MG/2 ML VIAL IVP STA ×2 (15:53→17:38)
[2022-06-18] MEDS ORDERED: SODIUM CHLORIDE 0.9% 1,000 ML IV STA (15:53)
[2022-06-18] MEDS ORDERED: PHENobarbital 65 MG/ML VIAL IV STA (15:54)
[2022-06-18] MEDS ORDERED: LORazepam 2 MG/ML VIAL IVP STA (15:55)
--- NOTE | 2022-06-18 15:55 | ED Physician Documentation ---
PD HPI NVD - Stated complaint Stated Complaint: ETOH - History obtained from History obtained from: Patient, EMS (The medics state the patient's vital signs were good on route. He had significant shakiness and some tachycardia but heart rate no more than 110. Blood pressure was slightly elevated.) - History of Present Illness Timing - onset: Yesterday (The patient does have history of mixed alcohol use of both beer or wine and hard liquor. He has had intermittent attempts at cessation. He states he has not been successful for any length of time. He stopped drinking yesterday morning. He is having withdrawal symptoms and called EMS.) Timing - duration: Days (2) Timing - details: Gradual onset Associated symptoms: Loss of appetite, Other (Shakiness and tremor with the nausea and also feeling fast heart rate.). No: Fever, Abdominal pain, Near syncope / syncope Contributing factors: Alcohol use (No alcohol since yesterday morning per patient.). No: Sick contact, Bad food Improved by: No: Eating Similar symptoms before: Diagnosis (He has had alcohol withdrawal symptoms with stopping fever in just a day or 2 in the past. He states he has not made through to completely sober for an extended period for a long time.) Recently seen: Emergency Dept (prior ER visit for similar with discharge on meds for withdrawal. He states he only stayed sober for 2-3 days.) Review of Systems Constitutional: denies: Fever Nose: denies: Rhinorrhea / runny nose, Congestion Throat: denies: Sore throat Cardiac: denies: Chest pain / pressure, Palpitations, Pedal edema, Calf pain Respiratory: denies: Dyspnea, Cough GI: reports: Abdominal Pain (cramping), Nausea. denies: Abdominal Swelling, Vomiting, Diarrhea Musculoskeletal: denies: Neck pain, Back pain Neurologic: reports: Generalized weakness, Confused, Other (shakiness/tremor last night/today worsening.). denies: Near syncope, Headache Immunocompromised: denies: Immunocompromised PD PAST MEDICAL HISTORY - Past Medical History Cardiovascular: Hypertension Respiratory: None Neuro: None Endocrine/Autoimmune: None GI: None : None HEENT: None Psych: Other Musculoskeletal: Other Derm: None - Present Medications Home Medications: Ambulatory Orders Medication Instructions Recorded Confirmed amLODIPine [Norvasc] 5 mg PO DAILY 11/13/20 06/18/22 tiZANidine [Zanaflex] 2 mg PO Q8H 03/08/22 06/18/22 LORazepam [Ativan] 1 mg PO Q6H PRN #25 tablet 06/18/22 Ondansetron Odt [Zofran] 4 mg TL Q6H PRN #10 tablet 06/18/22 PHENobarbitaL [Phenobarbital] 30 mg PO BID 6 Days #9 tablet 06/18/22 - Allergies Allergies/Adverse Reactions: Allergies Allergy/AdvReac Type Severity Reaction Status Date / Time No Known Drug Allergies Allergy Verified 06/18/22 15:59 - Living Situation Living Situation: reports: Alone Living Arrangement: reports: At home - Social History Does the pt smoke?: No Smoking Status: Never smoker Does the pt drink ETOH?: Yes ETOH Use: Other (mixed alcohols regularly -- at least 7-8 drinks per day.) Does the pt have substance abuse?: No - Immunizations Immunizations are current?: No - POLST Patient has POLST: No PD ED PE NORMAL - Vitals Vital signs reviewed: Yes - General General: Alert and oriented X 3, Well developed/nourished, Other (Very notable shakiness and tremor resting and with intention. He is able to answer questions without any noted delirium.) - HEENT HEENT: PERRL (nonicteric), Pharynx benign - Neck Neck: Supple, no meningeal sign, No adenopathy - Cardiac Cardiac: No murmur. No: RRR (tachycardic with regular rhythm. ) - Respiratory Respiratory: No respiratory distress, Clear bilaterally - Abdomen Abdomen: Soft, Non tender - Derm Derm: Normal color, Warm and dry - Extremities Extremities: Normal ROM s pain, No edema, No calf tenderness / cord - Neuro Neuro: Alert and oriented X 3, No motor deficit, Normal speech, Other (tremor/shakiness noted. ) Results - Vitals Vitals: Vital Signs - 24 hr 06/18/22 06/18/22 15:55 18:00 Temperature 37.1 C Heart Rate 108 H 102 H Respiratory 18 18 Rate Blood Pressure 153/90 H 133/87 H O2 Saturation 96 95 Oxygen O2 Source Room air - Labs Labs: Laboratory Tests 06/18/22 06/18/22 06/18/22 16:04 16:04 16:04 WBC 8.3 RBC 4.29 L Hgb 14.6 Hct 41.5 L MCV 96.7 H MCH 34.0 H MCHC 35.2 RDW 12.7 Plt Count 206 MPV 9.6 Neut # (Auto) 7.2 H Lymph # (Auto) 0.6 L [place] # (Auto) 0.4 Eos # (Auto) 0.0 Baso # (Auto) 0.1 Absolute Nucleated RBC 0.00 Nucleated RBC % 0.0 Sodium 131 L Potassium 3.7 Chloride 93 L Carbon Dioxide 21 Anion Gap 17.0 H BUN 7 Creatinine 0.7 Estimated GFR (MDRD) 114 Glucose 121 H Calcium 9.4 Total Bilirubin 0.7 AST 75 H ALT 38 Alkaline Phosphatase 84 Total Creatine Kinase 17 L B-Natriuretic Peptide 85 Total Protein 7.4 Albumin 3.9 Globulin 3.5 Albumin/Globulin Ratio 1.1 Lipase 26 Urine Color Urine Clarity Urine pH Ur Specific [place] Urine Protein Urine Glucose (UA) Urine Ketones Urine Occult Blood Urine Nitrite Urine Bilirubin Urine Urobilinogen Ur Leukocyte Esterase Ur Microscopic Review Urine Culture Comments Ethyl Alcohol < 5.0 06/18/22 17:47 WBC RBC Hgb Hct MCV MCH MCHC RDW Plt Count MPV Neut # (Auto) Lymph # (Auto) [place] # (Auto) Eos # (Auto) Baso # (Auto) Absolute Nucleated RBC Nucleated RBC % Sodium Potassium Chloride Carbon Dioxide Anion Gap BUN Creatinine Estimated GFR (MDRD) Glucose Calcium Total Bilirubin AST ALT Alkaline Phosphatase Total Creatine Kinase B-Natriuretic Peptide Total Protein Albumin Globulin Albumin/Globulin Ratio Lipase Urine Color YELLOW Urine Clarity CLEAR Urine pH 6.0 Ur Specific [place] 1.010 Urine Protein NEGATIVE Urine Glucose (UA) NEGATIVE Urine Ketones 15 H Urine Occult Blood NEGATIVE Urine Nitrite NEGATIVE Urine Bilirubin NEGATIVE Urine Urobilinogen 0.2 (NORMAL) Ur Leukocyte Esterase NEGATIVE Ur Microscopic Review NOT INDICATED Urine Culture Comments NOT INDICATED Ethyl Alcohol PD Medical Decision Making - ED course Complexity details: re-evaluated patient (The patient is feeling improved on his symptoms. He subsequently states he would rather go home with just information and call the detox places. He states he will not drink alcohol and will use the medications. Nurses had been looking for placement at [facility] or up to a. We will defer that.), considered differential (The patient presents with alcohol withdrawal with only 1-1/2 days of no alcohol. He has had problems in the past and never really lasted long. He states he would like detox this time.) ED course: The patient was having much improved symptoms with IV medic Acacian's of phenobarb and benzodiazepines. His shaking is much improved. His heart rate is better and blood pressure is good. Nurses were looking for calling detox centers for placement for the patient. However he subsequently stated he would rather go home at this time and will call the detox places himself tomorrow or Monday. I will provide prescriptions for him for alcohol withdrawal. I gave a oral dose just now before discharge as pharmacies will be closed this evening. Hopefully this will be sufficient to control till the morning. Departure - Departure Disposition: Home, Self Care Clinical Impression: Alcohol use disorder Alcohol withdrawal Qualifiers: Complication of substance-induced condition: uncomplicated Qualified Code(s): F10.930 - Alcohol use, unspecified with withdrawal, uncomplicated Condition: Stable Record reviewed to determine appropriate education?: Yes Instructions: ED Withdrawal Alcohol Follow-Up: Brent Suarez MD [Primary Care Provider] - Prescriptions: LORazepam [Ativan] 1 mg PO Q6H PRN #25 tablet PRN Reason: Alcohol Withdrawal PHENobarbitaL [Phenobarbital] 30 mg PO BID 6 Days #9 tablet Ondansetron Odt [Zofran] 4 mg TL Q6H PRN #10 tablet PRN Reason: Nausea / Vomiting Comments: Please refrain from drinking alcohol. Try to stay well-hydrated with normal fluids regular diet. I wrote prescriptions for medications commonly used for alcohol withdrawal. 1 is phenobarbital 30 mg twice daily for 3 days and then once daily for 3 days. In addition you can use lorazepam 1 mg every 4-6 hours if needed for withdrawal symptoms as well. Ondansetron if needed for nausea. Tylenol if needed for pains. Discussed with your about the alcohol treatment programs. This will be the most likely mechanism for you to be able to stop alcohol for any length of time as attempts on your own if not really been successful in the past. The nurse provided you with the phone numbers for [facility] and also [facility] as possibilities. I sent your prescriptions to [facility] in [place]. The pharmacies will be open till tomorrow so hopefully the dose we gave you orally here just before discharge will be sufficient for overnight.
[2022-06-18 16:10] LABS: BASOPHILS # (AUTO) 0.1 10^3/uL (0.0-0.1); BASOPHILS % (AUTO) 0.6 %; EOSINOPHILS % (AUTO) 0.1 %; HCT - HEMATOCRIT 41.5 % (42.0-52.0); HGB - HEMOGLOBIN 14.6 g/dL (14.0-18.0); LYMPHOCYTES # (AUTO) 0.6 10^3/uL (1.5-3.5); LYMPHOCYTES % (AUTO) 7.3 %; MEAN CORPUSCULAR HGB CONC 35.2 g/dL (32.0-36.0); MEAN CORPUSCULAR VOLUME 96.7 fL (80.0-94.0); MEAN PLATELET VOLUME 9.6 fL (7.4-11.4); MONOCYTES # (AUTO) 0.4 10^3/uL (0.0-1.0); MONOCYTES % (AUTO) 5.3 %; NEUTROPHILS # (AUTO) 7.2 10^3/uL (1.5-6.6); NEUTROPHILS % (AUTO) 86.2 %; PLT - PLATELET COUNT 206 10^3/uL (130-450); RED BLOOD COUNT 4.29 10^6/uL (4.70-6.10); RED CELL DISTRIBUTION WIDTH 12.7 % (12.0-15.0); WHITE BLOOD COUNT 8.3 x10^3/uL (4.8-10.8)
[2022-06-18 16:22] LABS: ALBUMIN 3.9 g/dL (3.2-5.5); ALBUMIN/GLOBULIN RATIO 1.1 (1.0-2.2); ALKALINE PHOSPHATASE 84 IU/L (42-121); ALT ALANINE AMINOTRANSFERASE 38 IU/L (10-60); AST ASPARTATE AMINOTRANSFERASE 75 IU/L (10-42); BILIRUBIN,TOTAL 0.7 mg/dL (0.2-1.0); BUN - BLOOD UREA NITROGEN 7 mg/dL (6-20); CALCIUM 9.4 mg/dL (8.5-10.3); CARBON DIOXIDE - CO2 21 mmol/L (21-32); CHLORIDE 93 mmol/L (101-111); CK- CREATINE KINASE 17 IU/L (22-269); CREATININE 0.7 mg/dL (0.6-1.2); ETOH - ETHANOL < 5.0 mg/dL; GFR - MDRD 114 (>89); GLUCOSE 121 mg/dL (70-100); LIPASE 26 U/L (22-51); POTASSIUM 3.7 mmol/L (3.5-5.0); SODIUM 131 mmol/L (135-145); TOTAL PROTEIN 7.4 g/dL (6.7-8.2)
[2022-06-18] MEDS ORDERED: FAMOTIDINE 20 MG/2 ML VIAL IVP STA (17:38)
[2022-06-18 18:00] LABS: BILIRUBIN,URINE NEGATIVE (NEGATIVE); CLARITY,URINE CLEAR (CLEAR); GLUCOSE, URINE (UA) NEGATIVE (NEGATIVE); KETONES,URINE (UA) 15 mg/dL (NEGATIVE); LEUKOCYTE ESTERASE, URINE NEGATIVE (NEGATIVE); NITRITE,URINE NEGATIVE (NEGATIVE); OCCULT BLOOD,URINE NEGATIVE (NEGATIVE); PROTEIN,URINE NEGATIVE (NEGATIVE); UROBILINOGEN,URINE 0.2 (NORMAL) E.U./dL (NORMAL)
[2022-06-18] MEDS ORDERED: PHENobarbitaL 32.4 MG TABLET PO STA (18:51)
[2022-06-18] MEDS ORDERED: chlordiazePOXIDE 25 MG CAPSULE PO STA (18:52)
[2022-06-18] MEDS ORDERED: ONDANSETRON ODT 4 MG Prepack 2 TL PRN (18:52)
[2022-06-18 19:14] VITALS: BP 126/89
== END 2022-06-18 19:30 | disposition home or self-care (01) ==
LOC: EDUNIT# → ED 15:43
DX: F10.930 Alcohol use, unspecified with withdrawal, uncomplicated (principal); I10 Essential (primary) hypertension; Z20.822 Contact with and (suspected) exposure to COVID-19
CPT/HCPCS: 36415; 80053; 80320; 81003; 82550; 83690; 83880; 85025; 87635; 93005; 96361; 96374; 96375; 96376; 99284; 99285; A9270; J2060; 81001; 87086

== ENCOUNTER 2022-07-03 21:49 | Outpatient (CLI) | payer BC | END 2022-07-03 23:59 | disposition critical access hospital (66) | LOC: EMS 21:49 | DX: F41.9 Anxiety disorder, unspecified (principal); F10.10 Alcohol abuse, uncomplicated; U07.1 COVID-19 | CPT/HCPCS: A0425; A0429 ==

== ENCOUNTER 2022-07-03 22:10 | Emergency (ER) | payer BC ==
[2022-07-03] MEDS ORDERED: PHENobarbital 65 MG/ML VIAL IM STA (22:22)
[2022-07-03] MEDS ORDERED: THIAMINE INJ 100 MG, MAGNESIUM SULFATE 2 GM, MULTIVITAMIN 10 ML, FOLIC ACID INJ 1 MG in... IV ONE ×5 (22:22)
[2022-07-03] MEDS ORDERED: LORazepam 2 MG/ML VIAL IVP STA (22:22)
[2022-07-03] MEDS ORDERED: MULTIVITAMIN IV 10 ML VIAL ONE (22:39)
[2022-07-03] MEDS ORDERED: MAGNESIUM SULFATE 1 GM/2 ML VIAL ONE (22:39)
[2022-07-03] MEDS ORDERED: THIAMINE 100 MG/1 ML 2 ML MDV ONE (22:39)
[2022-07-03] MEDS ORDERED: FOLIC ACID 5 MG/1 ML 10ML MDV ONE (22:39)
[2022-07-03] MEDS ORDERED: PHENobarbital 65 MG/ML VIAL IV STA (22:39)
[2022-07-03] MEDS ORDERED: diazePAM 5 MG TABLET PO STA (23:31)
[2022-07-03 23:33] VITALS: BP 156/88
--- NOTE | 2022-07-03 23:48 | ED Physician Documentation ---
PD HPI NVD - Stated complaint Stated Complaint: ETOH W/D, C+ 06/26/22 - Chief complaint Chief Complaint: Abd Pain - History obtained from History obtained from: Patient - Additonal information Additional information: The patient comes to the emergency department chief complaint of alcohol withdrawal. He states he has been shaky and nauseated for the last few hours. He normally drinks 7 or 8 drinks which can be either beer or wine, each day. However, he only had 4 drinks today and his last one was at 1600. A few hours later, he began to feel tremulous and nauseated. He states this feeling has gotten worse and worse over the evening. He states that he is just trying to quit drinking because he has been an alcoholic since he was 16 and wants to stop. The patient denies other medical problems. No other complaints at this time. He states he has never gone to rehab. PD PAST MEDICAL HISTORY - Past Medical History Cardiovascular: Hypertension Respiratory: None Neuro: None Endocrine/Autoimmune: None GI: None : None HEENT: None Psych: Other Musculoskeletal: Other Derm: None - Present Medications Home Medications: Ambulatory Orders Medication Instructions Recorded Confirmed LORazepam [Ativan] 1 mg PO Q6H PRN #12 tablet 07/03/22 Ondansetron Odt [Zofran] 4 mg TL Q6H PRN #10 tablet 07/03/22 amLODIPine [Norvasc] 07/03/22 tiZANidine [Zanaflex] 07/03/22 - Allergies Allergies/Adverse Reactions: Allergies Allergy/AdvReac Type Severity Reaction Status Date / Time No Known Drug Allergies Allergy Verified 07/03/22 22:21 - Social History Does the pt smoke?: No Smoking Status: Never smoker Does the pt drink ETOH?: Yes Does the pt have substance abuse?: No - Immunizations Immunizations are current?: No - POLST Patient has POLST: No PD ED PE NORMAL - Vitals Vital signs reviewed: Yes - General General: Alert and oriented X 3, No acute distress, Well developed/nourished, Other (The patient appears somewhat anxious but otherwise no apparent distress.) - HEENT HEENT: Atraumatic, PERRL, EOMI, Moist mucous membranes - Neck Neck: Supple, no meningeal sign - Cardiac Cardiac: No murmur, Other (Tachycardic rate, regular rhythm) - Respiratory Respiratory: No respiratory distress, Clear bilaterally - Abdomen Abdomen: Soft, Non tender, Non distended - Derm Derm: Warm and dry - Extremities Extremities: No deformity - Neuro Neuro: Alert and oriented X 3, Other (Fine tremors bilateral upper extremities. Otherwise grossly intact.) - Psych Psych: Other (Mildly anxious, otherwise normal) Results - Vitals Vitals: Vital Signs - 24 hr 07/03/22 07/03/22 07/03/22 22:15 22:43 23:15 Temperature 36.7 C Heart Rate 114 H 109 H 100 Respiratory 18 18 18 Rate Blood Pressure 159/100 H 156/97 H 142/90 H O2 Saturation 97 95 96 07/03/22 07/03/22 23:32 23:58 Temperature 37.0 C Heart Rate 97 103 H Respiratory 14 15 Rate Blood Pressure 156/88 H 156/88 H O2 Saturation 95 99 Oxygen O2 Source Room air PD Medical Decision Making - ED course Complexity details: considered differential, d/w patient ED course: The patient was treated with a banana bag, phenobarbital, and Ativan and was found to be feeling much better. His heart rate had normalized. The patient was given a p.o. dose of Valium, as well. He had stated that he did not want to pursue inpatient treatment at this time, but for now, just wanted to try to get feeling better so he could stay off alcohol. I sent a prescription for Valium to the [facility] pharmacy for him for the next couple of days. He has been given a sheet with various addiction help resources on it. We have discussed the usual indications for follow-up and return. Departure - Departure Disposition: 01 Home, Self Care Clinical Impression: Anxiety Alcohol withdrawal Qualifiers: Complication of substance-induced condition: uncomplicated Qualified Code(s): F10.930 - Alcohol use, unspecified with withdrawal, uncomplicated Instructions: ED Withdrawal Alcohol Prescriptions: LORazepam [Ativan] 1 mg PO Q6H PRN #12 tablet PRN Reason: Alcohol Withdrawal Ondansetron Odt [Zofran] 4 mg TL Q6H PRN #10 tablet PRN Reason: Nausea / Vomiting Comments: You have been treated in the emergency department for alcohol withdrawal today. The medications we have given you, both through the IV and orally, should last you until morning. Prescriptions for medication for withdrawal/anxiety and nausea have been electronically transmitted to the [facility] pharmacy in [place], your pharmacy of choice on record. Please pick the prescriptions up first thing in the morning. Please look into getting help with your alcohol abuse. There are many resources, both outpatient and inpatient, which can assist in this process and help assure your success. Discharge Date/Time: 07/04/22 00:12
== END 2022-07-04 00:12 | disposition home or self-care (01) ==
LOC: EDSEX → EDUNIT# → ED 22:10
DX: F41.9 Anxiety disorder, unspecified (principal); F10.239 Alcohol dependence with withdrawal, unspecified
CPT/HCPCS: 36415; 96365; 96375; 99283; 99284; A9270; J2060; J3411

== ENCOUNTER 2022-08-28 06:23 | Emergency (ER) | payer BC ==
[2022-08-28] MEDS ORDERED: LORazepam 2 MG/ML VIAL IVP STA (07:20)
[2022-08-28] MEDS ORDERED: SODIUM CHLORIDE 0.9% 1,000 ML IV STA ×2 (07:20→07:21)
[2022-08-28] MEDS ORDERED: DROPERIDOL 5 MG/2 ML VIAL IVP STA (07:20)
[2022-08-28] MEDS ORDERED: MULTIVITAMIN TABLET PO STA (07:21)
[2022-08-28] MEDS ORDERED: THIAMINE INJ 100 MG in SODIUM CHLORIDE 0.9% 50 ML IV STA (07:21)
--- NOTE | 2022-08-28 07:28 | ED Physician Documentation ---
History of Present Illness - Stated complaint Stated Complaint: WITHDRAWAL - Chief complaint Chief Complaint: MHE - History obtained from History obtained from: Patient, Family - Additonal information Additional information: The patient comes to the emergency department with chief complaint of shaking and nausea after drinking alcohol heavily for the last 2 to 3 weeks. He has a history of alcoholism and states that he got sick in mid June and did not feel like drinking for about a month. He states that he thought he just have 1 drink after that and then ended up getting him started on regular heavy consumption of alcohol again. The patient would like to stop but is not interested in any inpatient treatment. He is here for symptomatic treatment now and would like something to help with withdrawals at home. He states that his last drink was around 2300 last night and symptoms started around 5:00 this morning. Included nausea, shaking, and heart racing. Patient denies any chest pain or shortness of breath. He states he has mild hypertension but is otherwise healthy. No known liver problems. He denies any abdominal pain. No other complaints at this time. PD PAST MEDICAL HISTORY - Past Medical History Cardiovascular: Hypertension Respiratory: None Neuro: None Endocrine/Autoimmune: None GI: None : None HEENT: None Psych: Other Musculoskeletal: Other Derm: None - Present Medications Home Medications: Ambulatory Orders Medication Instructions Recorded Confirmed amLODIPine [Norvasc] 5 mg PO DAILY 07/03/22 08/28/22 tiZANidine [Zanaflex] 4 mg PO DAILY 07/03/22 08/28/22 LORazepam [Ativan] 1 mg PO Q6H PRN #12 tablet 08/28/22 Ondansetron Odt [Zofran] 4 mg TL Q6H PRN #10 tablet 08/28/22 - Allergies Allergies/Adverse Reactions: Allergies Allergy/AdvReac Type Severity Reaction Status Date / Time No Known Drug Allergies Allergy Verified 08/28/22 06:38 - Social History Does the pt smoke?: No Smoking Status: Never smoker Does the pt drink ETOH?: Yes Does the pt have substance abuse?: No - Immunizations Immunizations are current?: No - POLST Patient has POLST: No PD ED PE NORMAL - Vitals Vital signs reviewed: Yes - General General: Alert and oriented X 3, No acute distress, Well developed/nourished, Other (The patient appears generally mildly tremulous) - HEENT HEENT: Atraumatic, PERRL, EOMI, Moist mucous membranes - Neck Neck: Supple, no meningeal sign - Cardiac Cardiac: RRR, No murmur - Respiratory Respiratory: No respiratory distress, Clear bilaterally - Abdomen Abdomen: Soft, Non tender, Non distended - Derm Derm: Normal color, Warm and dry, No rash - Extremities Extremities: No deformity, No edema - Neuro Neuro: Alert and oriented X 3 - Psych Psych: Normal mood, Normal affect Results - Vitals Vitals: Vital Signs - 24 hr 08/28/22 08/28/22 08/28/22 06:33 07:44 09:41 Temperature 36.8 C Heart Rate 119 H 92 96 Respiratory 21 18 16 Rate Blood Pressure 139/75 H 139/87 H 111/85 H O2 Saturation 97 95 95 Oxygen O2 Source Room air - Labs Labs: Laboratory Tests 08/28/22 06:22 Ethyl Alcohol < 5.0 PD Medical Decision Making - ED course Complexity details: reviewed results, re-evaluated patient, considered differential, d/w patient ED course: The patient was worked up with an alcohol level and treated symptomatically for his alcohol withdrawal with IV fluids, thiamine, multivitamin, droperidol, and Ativan. Patient was found to be feeling much better. His significant other was with him and the patient wanted to be discharged. I have given him a prescription for 3 days of Ativan to get him through his withdrawals. He is advised that he must not drink alcohol if he is taking this medication. We have discussed seeing his primary doctor to discuss options for help with his drinking, whether inpatient or outpatient. Departure - Departure Disposition: 01 Home, Self Care Clinical Impression: Alcohol withdrawal Qualifiers: Complication of substance-induced condition: uncomplicated Qualified Code(s): F10.930 - Alcohol use, unspecified with withdrawal, uncomplicated Condition: Stable Instructions: ED Withdrawal Alcohol Prescriptions: LORazepam [Ativan] 1 mg PO Q6H PRN #12 tablet PRN Reason: Alcohol Withdrawal Ondansetron Odt [Zofran] 4 mg TL Q6H PRN #10 tablet PRN Reason: Nausea / Vomiting Comments: You have been treated with for alcohol withdrawal today. A prescription for medications to help with the symptoms of this has been electronically transmitted to the [facility] pharmacy in [place]. Please be sure you get plenty of water to drink and take the medications as needed for the next few days to help with your withdrawal symptoms. Please talk to your doctor about options for getting help with your drinking. Discharge Date/Time: 08/28/22 09:49
[2022-08-28 09:42] VITALS: BP 111/85
== END 2022-08-28 09:49 | disposition home or self-care (01) ==
LOC: ED 06:23
DX: F10.239 Alcohol dependence with withdrawal, unspecified (principal); Y90.0 Blood alcohol level of less than 20 mg/100 ml
CPT/HCPCS: 36415; 80320; 96361; 96365; 96375; 99284; A9270; J2060; J3411; J7040